=== PATIENT | male | born 1980 | race Caucasian/White ===

== ENCOUNTER 2024-04-04 19:19 | Emergency (ER) | payer MEDICAID ==
[~2024-04-04] VITALS: Ht 175.3 cm; Wt 91.0 kg
[2024-04-04 19:27] VITALS: BP 123/85; PULSE 76; RESP 18; TEMP 36.6; O2SAT 97
[2024-04-04 21:06] LABS: BASOPHILS % 0.9 % (0.0-2.0); EOSINOPHILS % 1.3 % (0.0-5.0); HEMATOCRIT. 45.2 % (42.0-52.0); HEMOGLOBIN. 15.2 g/dL (14.0-18.0); LYMPHOCYTES % 13.2 % (20.0-50.0); MEAN CORPUSCULAR HEMOGLOBIN 29.3 pg (28.0-32.0); MEAN CORPUSCULAR HGB CONC 33.7 g/dL (31.0-37.0); MEAN CORPUSCULAR VOLUME 86.9 fL (80.0-94.0); MEAN PLATELET VOLUME 8.4 fl (7.4-10.4); MONOCYTES % 5.7 % (2.0-8.0); NEUTROPHILS % 78.9 % (40.0-76.0); PLATELET 242 x1000/uL (130-400); RED CELL DISTRIBUTION WIDTH 13.9 % (11.6-14.6); WHITE BLOOD COUNT 10.3 x1000/uL (4.5-11.0)
[2024-04-04 21:13] LABS: CARBON DIOXIDE 27 mEq/L (21-32); CHLORIDE 105 mEq/L (98-107); POTASSIUM 3.9 mEq/L (3.5-5.1); SODIUM 141 mEq/L (136-145)
[2024-04-04 21:14] LABS: CALCIUM 9.5 mg/dL (8.7-10.4)
[2024-04-04 21:16] LABS: INR 0.9; PROTHROMBIN TIME 10.5 sec (9.6-11.0)
[2024-04-04 21:18] LABS: CREATININE 1.4 mg/dL (0.6-1.3)
[2024-04-04 21:19] LABS: GLUCOSE 133 mg/dL (70-105); UREA NITROGEN BLOOD 25 mg/dL (9-23)
[2024-04-04 21:20] LABS: ALANINE AMINOTRANSFERASE 23 IU/L (10-49); ALBUMIN 4.5 g/dL (3.2-4.8); ASPARTATE AMINOTRANSFERASE 26 IU/L (<34)
[2024-04-04 21:21] LABS: BILIRUBIN TOTAL 0.2 mg/dL (0.1-1.0); PROTEIN TOTAL 7.4 g/dL (6.0-8.3)
[2024-04-04 21:28] LABS: BILIRUBIN DIRECT < 0.1 mg/dL (<=3.0)
[2024-04-04] MEDS: SODIUM CHLORIDE 0.9% 1,000 ML IV ONE (22:49)
[2024-04-04] MEDS: KETOROLAC 30MG/ML VIAL IM ONE (22:49)
[2024-04-04] MEDS: HYDROCODONE/ACETAMINOPHEN 5/325MG TABLET PO ONE (22:50)
[2024-04-04] MEDS: ONDANSETRON HCL 4MG/2ML INJ IV ONE (23:31)
[2024-04-05] MEDS ORDERED: IBUP-1525 MT (01:38)
[2024-04-05] MEDS ORDERED: TAMS-11 MT (01:38)
[2024-04-05] MEDS ORDERED: HYDR-4001 MT (01:38)
[2024-04-05] MEDS ORDERED: ONDA4TAB50 MT (01:38)
== END 2024-04-05 03:39 | disposition home or self-care (01) ==
LOC: ER 19:19
DX: R10.11 Right upper quadrant pain (principal); R11.2 Nausea with vomiting, unspecified
CPT/HCPCS: 80076; 80048; 83690; 85025; 85610; 36415; 76700; 96361; 96372; 96374; 99285; 74176; J1885; J2405; J7030; Z7610